=== PATIENT | male | born 1970 | race Caucasian/White ===

== ENCOUNTER → 2019-05-11 | Outpatient (CLI) | payer BC ==
--- NOTE | 2019-05-11 08:38 | Diagnostic Imaging Report ---
PROCEDURE: MRI lumbar spine. TECHNIQUE: Multiplanar, multisequence MRI of the lumbar spine was performed without contrast. INDICATION: Low back pain. Started years ago from heavy lifting. Comparison: None Findings: 5 lumbar type vertebral bodies are visualized with the last well-formed disc space designated L5-S1. No acute fracture or dislocation is seen in the lumbar spine. Alignment is anatomic. Vertebral heights and disc spaces are well-maintained. The bone marrow signal is normal. Scattered osseous hemangiomas are noted. The conus terminates at the L1 level. No masses are seen associated with the conus or nerve roots of the cauda equina. No epidural collections are identified. Mild degenerative changes are seen in the lumbar spine with disc bulges, facet hypertrophy, and buckling of the ligamentum flavum. T12-L1: No significant spinal canal or foraminal stenosis. L1-L2: No significant spinal canal or foraminal stenosis. L2-L3: No significant spinal canal or foraminal stenosis. L3-L4: No significant spinal canal or foraminal stenosis. L4-L5: Broad-based disc bulge with annular fissure, facet hypertrophy, and buckling of the ligamentum flavum results in no spinal canal narrowing and mild bilateral foraminal narrowing. L5-S1: Broad-based disc bulge with annular fissure, facet hypertrophy, and buckling of results in no significant spinal canal narrowing and mild bilateral foraminal narrowing Paravertebral soft tissues are unremarkable. Impression: 1. No acute fracture or dislocation in the lumbar spine. 2. Mild multilevel degenerative changes in the lumbar spine, greatest at L4-L5 and L5-S1. Annular fissures are noted at both of these levels with associated broad-based disc bulges. Dictated by: Dictated on workstation # [id number]
== END ==
LOC: RAD 07:44
PROVIDERS: ATTEND Physician Assistant
DX: M47.817 Spondylosis without myelopathy or radiculopathy, lumbosacral region (principal); M51.36 Other intervertebral disc degeneration, lumbar region
CPT/HCPCS: 72148

== ENCOUNTER → 2019-11-08 | Outpatient (CLI) | payer BC ==
--- NOTE | 2019-11-08 11:54 | Diagnostic Imaging Report ---
EXAMINATION: Left ribs at 11:31 a.m. INDICATION: Left breast pain. Five views were obtained. There are no prior studies available for comparison. There is no evidence for a displaced rib fracture. No other acute bony abnormality is appreciated. There is no sign of an injury to the underlying left lung. Specifically, there is no pneumothorax. There is a small benign-appearing 5 mm nodular density in the periphery of the left upper lobe. This may represent a granuloma. It would be unlikely that this is neoplastic in nature. If previous chest exams are available they would be helpful for comparison. If there are no prior chest exams, then CT of the chest should be considered for further evaluation. IMPRESSION: 1. There is no evidence for a displaced rib fracture. 2. There is no evidence for an injury to the underlying left lung. 3. The small nodular density in the periphery of the left upper lung is most likely a benign process. Recommendations as above. Dictated by: Dictated on workstation # [id number]
== END ==
LOC: RAD FS 11:13
PROVIDERS: ATTEND Nurse Practitioner Family
DX: J98.4 Other disorders of lung (principal); R07.9 Chest pain, unspecified; N64.4 Mastodynia
CPT/HCPCS: 71100

== ENCOUNTER → 2019-11-16 | Outpatient (CLI) | payer BC ==
[~2019-11-16] MED LIST: CATHETER FLUSH 10 ML SYR IV PRN; HOLD METFORMIN - RECEIVED CONTRAST 20 ML VIAL IV SCH; IOHEXOL 350 MG/ML 100 ML (OMNIPAQUE 350) VIAL IV ONE; NS 100 ML (IVPB) BAG IV ONE
--- NOTE | 2019-11-16 10:48 | Diagnostic Imaging Report ---
PROCEDURE: CT chest with contrast only. TECHNIQUE: Multiple contiguous axial images were obtained through the chest after administration of intravenous contrast. Auto Exposure Controls were utilized during the CT exam to meet ALARA standards for radiation dose reduction. INDICATION: Left lung nodule. COMPARISON: Correlation is made with radiograph from 11/08/2019. FINDINGS: No axillary lymphadenopathy is detected. No definite mediastinal or hilar lymphadenopathy is identified. No pericardial or pleural fluid is detected. A 4 mm calcified nodule periphery of the left upper lobe is noted corresponding to the radiographic abnormality. This is consistent with a small calcified granuloma. Tiny subpleural nodule in the lateral right lower lobe is noted. No mass or infiltrate is identified. Upper abdomen demonstrates a tiny low density in the dome of the right lobe of the liver, too small to characterize. IMPRESSION: Essentially unremarkable CT of the chest. The nodular density noted radiographically corresponds to a tiny calcified granuloma. No noncalcified masses or thoracic lymphadenopathy is detected. Dictated by: Dictated on workstation # [id number]
== END ==
LOC: RAD FS 09:57
PROVIDERS: ATTEND Emergency Medicine
DX: J98.4 Other disorders of lung (principal); R91.1 Solitary pulmonary nodule
CPT/HCPCS: 71260

== ENCOUNTER 2021-09-12 06:43 | Emergency (ER) | payer BC, OTHER ==
[~2021-09-12] VITALS: Ht 177 cm; Wt 70.0 kg
[2021-09-12] MEDS ORDERED: TRAM50TA3 PO (07:12)
[2021-09-12] MEDS ORDERED: DOXY100T2 PO (07:12)
[2021-09-12] MEDS ORDERED: PRD20T PO (07:12)
--- NOTE | 2021-09-12 07:12 | ED General ---
General Chief Complaint: Oral/Throat Problems Stated Complaint: COVID+;HEADACHE;FEVER Source of Information: Patient Exam Limitations: No Limitations History of Present Illness Date Seen by Provider: Sep 12, 2021 Time Seen by Provider: 06:50 Initial Comments Patient is a 51-year-old male who presents with cough, sore throat, body aches chills starting 2 days ago. Patient took a home Covid test yesterday which was positive. He states has been taking ibuprofen Tylenol with limited relief of his sore throat. Reports painful swallowing. No dysphonia drooling or dysphagia. Denies shortness of breath, wheezing or fever. No nausea or vomiting. No headache or dizziness. No other acute symptoms or complaints. Timing/Duration: 1 Day Severity: Moderate Modifying Factors: improves with Other Associated Systoms: Other Allergies and Home Medications Allergies Coded Allergies: hydrocodone (Unverified Allergy, Unknown, 11/16/19) Patient Home Medication List Home Medication List Reviewed: Yes Review of Systems Review of Systems Constitutional: see HPI EENTM: see HPI Respiratory: see HPI Cardiovascular: see HPI Gastrointestinal: see HPI Genitourinary: see HPI Musculoskeletal: see HPI Skin: see HPI Psychiatric/Neurological: See HPI Hematologic/Lymphatic: See HPI Immunological/Allergic: see HPI All Other Systems Reviewed Negative Unless Noted: Yes Past Nbddjoh-Fzjqui-Rjrilr Hx Patient Social History Tobacco Use?: Yes Physical Exam Vital Signs Capillary Refill : Height, Weight, BMI Height: '" Weight: lbs. oz. kg; BMI Method: General Appearance: Anxious Eyes: Bilateral Eye Normal Inspection, Bilateral Eye PERRL, Bilateral Eye EOMI HEENT: PERRL/EOMI, TMs Normal, Pharyngeal Erythema (No swelling or exudate), Other Neck: Full Range of Motion, Non Tender, Supple Respiratory: Chest Non Tender, Lungs Clear Cardiovascular: Regular Rate, Rhythm Gastrointestinal: Non Tender, Soft Back: Normal Inspection, No CVA Tenderness Extremity: Normal Capillary Refill Neurologic/Psychiatric: Alert, Oriented x3 Skin: Normal Color Focused Exam Sepsis Stage: Ruled Out Progress/Results/Core Measures Suspected Sepsis SIRS Temperature: Pulse: Respiratory Rate: Blood Pressure / Mean: Results/Orders My Orders Orders - INNA FLANAGAN DO Prednisone Tablet (Deltasone Tablet) (09/12/21 07:15) Vital Signs/I&O Capillary Refill : Departure Communication (Admissions) Pharyngitis consistent with positive home test for Covid. Steroids given. Will treat supportively with watchful waiting, self quarantine and PCP follow-up. Re turn precautions reviewed. Impression Primary Impression: COVID Additional Impression: Pharyngitis Disposition: HOME, SELF-CARE Condition: Stable Departure-Patient Inst. Decision time for Depature: 07:09 Referrals: KAILA FITCH DO (PCP/Family) Primary Care Physician Patient Instructions: COVID-19 ED Add. Discharge Instructions: Please increase fluids and take Tylenol and tramadol for pain and complete cour se of steroids and antibiotics. Continue to self quarantine at home until 2 days after symptoms fully resolved. Return to the ED if new or worsening symptoms. All discharge instructions reviewed with patient and/or family. Voiced understanding. Scripts Tramadol HCl (Tramadol HCl) 50 Mg Tablet 50 MG PO QID, #20 TAB Prov: INNA FLANAGAN DO 09/12/21 Doxycycline Hyclate (Doxycycline Hyclate) 100 Mg Tablet 100 MG PO BID, #14 TAB 0 Refills Prov: INNA FLANAGNA DO 09/12/21 Prednisone (Prednisone) 20 Mg Tab 40 MG PO DAILY, #6 TAB 0 Refills Prov: INNA FLANAGAN DO 09/12/21 INNA FLANAGAN DO Sep 12, 2021 07:12
[2021-09-12] MEDS ORDERED: predniSONE 20 MG TAB PO ONE (07:15)
[2021-09-12 07:19] VITALS: BP 138/76
== END 2021-09-12 07:45 | disposition home or self-care (01) ==
LOC: EDUNIT# 06:43 → ER FS 06:46
DX: U07.1 COVID-19 (principal); J02.9 Acute pharyngitis, unspecified; Z72.0 Tobacco use
CPT/HCPCS: 99283

== ENCOUNTER → 2022-12-08 | Outpatient (CLI) | payer OTHER ==
[~2022-12-08] MED LIST changes: -CATHETER FLUSH 10 ML SYR IV PRN; +DOXY100T2 PO; -HOLD METFORMIN - RECEIVED CONTRAST 20 ML VIAL IV SCH; -IOHEXOL 350 MG/ML 100 ML (OMNIPAQUE 350) VIAL IV ONE; -NS 100 ML (IVPB) BAG IV ONE; +PRD20T PO; +TRAM50TA3 PO
--- NOTE | 2022-12-08 18:47 | Diagnostic Imaging Report ---
INDICATION: Back pain AP and lateral views of the lumbar spine obtained. The lumbar vertebrae are normal in height and alignment. There is no fracture or compression deformity or subluxation. Disc spaces are normal in height. IMPRESSION: Negative lumbar spine. Dictated by: Dictated on workstation # [id number]
== END ==
LOC: RAD FS 16:30
PROVIDERS: ATTEND Emergency Medicine
DX: M54.50 Low back pain, unspecified (principal)
CPT/HCPCS: 72100

== ENCOUNTER → 2023-06-18 | Outpatient (CLI) | payer OTHER ==
[~2023-06-18] MED LIST changes: +CATHETER FLUSH 10 ML SYR IV PRN; +HOLD METFORMIN - RECEIVED CONTRAST 20 ML VIAL IV SCH; +IOHEXOL 350 MG/ML 100 ML (OMNIPAQUE 350) VIAL IV ONE; +NS 100 ML (IVPB) BAG IV ONE
--- NOTE | 2023-06-18 16:34 | Diagnostic Imaging Report ---
EXAMINATION: CT chest with intravenous contrast. TECHNIQUE: Multiple contiguous axial images were obtained through the chest after the uneventful administration of intravenous contrast. All CT scans use one or more of the following dose optimizing techniques: automated exposure control, MA and/or KvP adjustment based on patient size and exam type or iterative reconstruction. HISTORY: Cough, pulmonary fibrosis, lung nodule COMPARISON: 11/16/2019 FINDINGS: There is no edema or pneumonia. No pleural effusion. No pneumothorax. No suspicious nodules. There is a calcified granuloma in the left upper lobe. There are mild subpleural bands in the lower lobes. There is no axillary or supraclavicular lymphadenopathy. There is no mediastinal lymphadenopathy. Heart size is normal. There are no coronary artery calcifications. No pericardial effusion. Aorta is normal in caliber. Limited views of the upper abdomen are unremarkable. There are no suspicious osseus lesions. IMPRESSION: 1. No suspicious nodules. 2. Mild peripheral and basilar subpleural bands which may represent early fibrosis. Dictated by: Dictated on workstation # [id number]
== END ==
LOC: RAD FS 15:29
PROVIDERS: ATTEND Nurse Practitioner Family
DX: J84.10 Pulmonary fibrosis, unspecified (principal)
CPT/HCPCS: 71260; Q9967